=== PATIENT | male | born 1965 | race Caucasian/White ===

== ENCOUNTER 2021-03-13 12:03 | Inpatient (IN) | payer BC, OTHER ==
[~2021-03-13] VITALS: Ht 180 cm; Wt 89.1 kg
[2021-03-13] MEDS ORDERED: diphenhydrAMINE 25 MG TAB (BENADRYL) PO PRN (12:30)
[2021-03-13] MEDS ORDERED: MELATONIN 3 MG TABLET PO PRN (12:30)
[2021-03-13] MEDS ORDERED: HYDROcodone/APAP 5 MG/325 MG (LORTAB) TAB PO PRN (12:30)
[2021-03-13] MEDS ORDERED: ONDANSETRON 4 MG/2 ML (SDV) Z0FRAN IVP PRN (12:30)
[2021-03-13] MEDS ORDERED: CALCIUM CARBONATE 500 MG (TUMS) TAB.CHEW PO PRN (12:30)
[2021-03-13] MEDS ORDERED: DOCUSATE SODIUM 100 MG (COLACE) CAP PO PRN (12:30)
[2021-03-13] MEDS ORDERED: FUROSEMIDE 40 MG/4 ML INJ (LASIX) IVP ONE (12:30)
[2021-03-13] MEDS ORDERED: morphine INJ 10 MG/ML 1ML (SYR OR VIAL) IVP PRN (12:30)
[2021-03-13] MEDS ORDERED: ACETAMINOPHEN 500 MG TAB (TYLENOL) PO PRN (12:30)
[2021-03-13] MEDS ORDERED: ALPRAZolam 0.25 MG (XANAX) TAB PO PRN (12:30)
[2021-03-13] MEDS ORDERED: LOPERAMIDE 2 MG (IMODIUM) TABLET PO PRN (12:30)
[2021-03-13 14:08] LABS: ABG BASE EXCESS -0.4 MMOL/L (-2.5-2.5); ABG OXYGEN SATURATION 97 % (94-100); ABG PCO2 31 MMHG (35-45); ABG PH 7.47 (7.37-7.43); ABG PO2 72 MMHG (79-93); ALLENS TEST YES-POS; INSPIRED O2 5
[2021-03-13 14:09] LABS: PATIENT TEMP 36; VENTILATOR NO
[2021-03-13] MEDS ORDERED: POTA20TA15 PO (14:10)
[2021-03-13] MEDS ORDERED: AMOX1TAB12 PO (14:10)
[2021-03-13] MEDS ORDERED: IBUP-2473 PO (14:10)
[2021-03-13] MEDS ORDERED: IPRA3AMP31 NEB (14:10)
[2021-03-13] MEDS ORDERED: FURO80TA3 PO (14:10)
[2021-03-13] MEDS ORDERED: ALBU90AE INH (14:10)
--- NOTE | 2021-03-13 14:26 | Consultation-Cardiology ---
HPI-Cardiology Cardiology Consultation: Date of Consultation 03/13/21 Time Seen by a Provider: 14:00 Date of Admission 03-13-21 Attending Physician Lilliana Mendez DO Admitting Physician Denae,Local Physician Consulting Physician Camila Hearn MD, MA, FACP, FACC, [facility], CCDS Physician requesting consult: Dr Mendez HPI: Chief Complaint: Reason for Cardiology consultation: Progressive dyspnea CHF Apical thrombus Mr. Ball is a 55 yr old male admitted as a direct admit following CT of the chest today ordered by Yisel Vitale APRN at [facility]. He reports he has had increasing SOB, orthopnea and bilat LE swelling for the last 2 weeks following a bout with food poisoning, strep throat and then pneumonia for which he was t reated as an out pt. His sister is at the bedside. He reports SOB with just walking across a room along with tachycardia. He reports chest tightness which has been constant for the last couple weeks. No c/o syncope or near syncope. Reports fever and chills in the past, but none in the last week. He denies any recent nausea or vomiting. He has dyspnea with conversation. Review of Systems-Cardiology Review of Systems Constitutional: As described under HPI Eyes: No vision change Ears/Nose/Throat: No epistaxis, No recent hearing loss Respiratory: As described under HPI Cardiovascular: As described under HPI Gastrointestinal: As described under HPI Genitourinary: No dysuria, No hematuria Musculoskeletal: no symptoms reported Skin: No rash on exposed areas, No ulcerations on exposed areas Psychiatric/Neurological: No anxiety, No depression, No seizure, No focal weakness, No syncope Hematologic: No bleeding abnormalities [id number] Hx Patient Social History Have you traveled recently?: No Alcohol Use?: No Pt feels they are or have been: No Past Medical History PMH As described under Assessment. Family Medical History Family Medical History: He reports his mother had an ischemic stroke. He has a sister who has had a CVA. His father has HTN, HLD. Allergies and Home Medications Allergies Coded Allergies: Sulfa (Sulfonamide Antibiotics) (Verified Allergy, Unknown, 03/13/21) Home Medications Albuterol Sulfate 90 Mcg Aer.pow.ba, 2 PUFF INH Q4H PRN for SHORTNESS OF BREATH, (Reported) Last Action: Reviewed Amoxicillin/Potassium Clav 1 Each Tablet, 1 EA PO BID, (Reported) FILLED 02-28-2021 #20/10 DAY SUPPLY Last Action: Reviewed Furosemide 80 Mg Tablet, 80 MG PO DAILY, (Reported) Last Action: Reviewed Ibuprofen 200 Mg Tablet, 400 MG PO Q8H PRN for PAIN-MILD (1-4), (Reported) Last Action: Reviewed Ipratropium/Albuterol Sulfate 3 Ml Ampul.neb, 3 ML NEB Q6H, (Reported) Last Action: Reviewed Potassium Chloride 20 Meq Tab.er.prt, 40 MEQ PO BID, (Reported) TAKES 2 (20MEQ) TABS Last Action: Reviewed Patient Home Medication List Home Medication List Reviewed: Yes Physical Exam-Cardiology Physical Exam Vital Signs/I&O 03/13/21 03/13/21 03/13/21 03/13/21 13:24 13:45 14:00 14:39 Pulse 131 120 117 117 Resp 34 B/P (MAP) 124/97 (106) 132/103 (113) Pulse Ox 97 98 98 O2 Delivery Nasal Cannula Nasal Cannula O2 Flow Rate 5.00 5.00 Capillary Refill : Constitutional: AAO x 3, well-developed, well-nourished HEENT: PERRL, hearing is well preserved Neck: No carotid bruit; carotid pulses are 2 + bilaterally Respiratory: No respiratory distress; chest expansion is symmetric, chest is bilaterally symmetric, other (dyspneic with conversation; diminished breat hsounds) Cardiovascular: JVD, tachycardia, S1 and S2, systolic murmur Gastrointestinal: No tender; soft, round, audible bowel sounds Extremities: other (bilat LE pitting edema) Neurologic/Psychiatric: grossly intact (moves all extremities) Skin: No rash on exposed areas, No ulcerations on exposed areas Data Review Labs Laboratory Tests 03/13/21 13:54: Blood Gas Puncture Site LEFT WRIST, Blood Gas Patient Temperature 36, Arterial Blood pH 7.47H, Arterial Blood Partial Pressure CO2 31L, Arterial Blood Partial Pressure O2 72L, Arterial Blood HCO3 23, Arterial Blood Total CO2 24.0, Arterial Blood Oxygen Saturation 97, Arterial Blood Base Excess -0.4, Quincy Test YES-POS, Blood Gas Ventilator Setting NO, Blood Gas Inspired Oxygen 5 03/13/21 14:30: White Blood Count 18.2H, Red Blood Count 5.88H, Hemoglobin 16.0, Hematocrit 50, Mean Corpuscular Volume 85, Mean Corpuscular Hemoglobin 27, Mean Corpuscular Hemoglobin Concent 32, Red Cell Distribution Width 14.7H, Platelet Count 294, Mean Platelet Volume 12.0, Immature Granulocyte % (Auto) 1, Neutrophils (%) (Auto) 86H, Lymphocytes (%) (Auto) 8L, Monocytes (%) (Auto) 5, Eosinophils (%) (Auto) 0, Basophils (%) (Auto) 0, Neutrophils # (Auto) 15.6H, Lymphocytes # (Auto) 1.4, Monocytes # (Auto) 1.0, Eosinophils # (Auto) 0.0, Basophils # (Auto) 0.0, Immature Granulocyte # (Auto) 0.1, Neutrophils % (Manual) 75, Lymphocytes % (Manual) 14, Monocytes % (Manual) 9, Eosinophils % (Manual) 1, Band Neutrophils 1, Blood Morphology Comment NORMAL, Prothrombin Time 13.9, INR Comment 1.0, D- Dimer 1.33H, Sodium Level 136, Potassium Level 4.3, Chloride Level 101, Carbon Dioxide Level 25, Anion Gap 10, Blood Urea Nitrogen 24H, Creatinine 0.91, Estimat Glomerular Filtration Rate > 60, BUN/Creatinine Ratio 26, Glucose Level 300H, Lactic Acid Level 1.99, Calcium Level 8.3L, Corrected Calcium 8.7, Total Bilirubin 0.7, Aspartate Amino Transf (AST/SGOT) 47H, Alanine Aminotransferase (ALT/SGPT) 119H, Alkaline Phosphatase 101, Troponin I 5.744*H, B-Type Natriuretic Peptide 758.8H, Total Protein 6.6, Albumin 3.5, Procalcitonin 0.04 Radiology NAME: [facility] REC#: [id number] PT STATUS: REG CLI : 1965 PHYSICIAN: YISEL VITALE APRN ADMIT DATE: 03/13/21/CARD Draft Date of Exam:03/13/21 CT CHEST W EXAMINATION: CT chest with intravenous contrast. TECHNIQUE: Multiple contiguous axial images were obtained through the chest after the uneventful administration of intravenous contrast. All CT scans use one or more of the following dose optimizing techniques: automated exposure control, MA and/or KvP adjustment based on patient size and exam type or iterative reconstruction. HISTORY: Shortness of breath, lower extremity edema. COMPARISON: None available. FINDINGS: There are moderate pleural effusions with central consolidation and septal line thickening most consistent with edema. There is bibasilar atelectasis. No pneumothorax. No suspicious nodules. There is no axillary or supraclavicular lymphadenopathy. Mildly enlarged mediastinal lymph nodes likely reactive to the pulmonary edema. 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 There are mild coronary artery calcifications. No pericardial effusion. Aorta is normal in caliber. Limited views of the upper abdomen are unremarkable. There are no suspicious osseus lesions. IMPRESSION: 1. Moderate-sized pleural effusions with moderate severe pulmonary edema. 2. 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 Called and faxed to Zoila/Yisel Vitale APRN at 12:03 p.m. by cvb. Dictated on workstation # [id number] Dict: 03/13/21 1152 Trans: 03/13/21 1210 CVB [id number] Interpreted by: EBER MÉNDEZ MD Electronically signed by: A/P-Cardiology Assessment/Admission Diagnosis Progressive dyspnea Tachycardia CHF Ischemic cardiomyopathy - Echocardiogram of 03-13-[address] Stallworth showed LVEF 35-40%. Mod diffuse hypokinesis. Akinesis of the apical myocardium. Cannot exclude an apical thrombus. Echogenic density was noted at the apex after the use of Definity contrast measuring 2 x 2 cm, most prob representing a thrombus. Akinesis of the apical anterior, apical inferior, apical septal, apical lateral and apical myocardium. Mod MR. Mod to severe TR. PASP 55-60 mmHg. 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 Extensive resuscitative effort lasting more than 30 minutes by the hospitalist and the ER physician was unsuccessful PARADISE CHEEMA [employer]OCKSTITCH [employer]ING [employer]KER March 13, 2021 14:26 CAMILA HEARN MD FACP FAC CCDS March 13, 2021 16:11
[2021-03-13 14:39] VITALS: BP 132/103
[2021-03-13 14:41] LABS: BASOPHILS % (AUTO) 0 % (0-10); EOSINOPHILS % (AUTO) 0 % (0-10); HEMATOCRIT 50 % (40-54); LYMPHOCYTES # (AUTO) 1.4 X 10^3 (1.0-4.0); LYMPHOCYTES % (AUTO) 8 % (12-44); MEAN CORPUSCULAR HEMOGLOBIN 27 pg (25-34); MEAN CORPUSCULAR HGB CONC 32 g/dL (32-36); MEAN CORPUSCULAR VOLUME 85 fL (80-99); MONOCYTES % (AUTO) 5 % (0-12); NEUTROPHILS # (AUTO) 15.6 X 10^3 (1.8-7.8); NEUTROPHILS % (AUTO) 86 % (42-75); PLATELET COUNT 294 10^3/uL (130-400); WHITE BLOOD COUNT 18.2 10^3/uL (4.3-11.0)
[2021-03-13] MEDS ORDERED: meTOproloL SUCCINATE 50 MG (TOPROL XL) TAB PO SCH (14:45)
[2021-03-13 14:56] LABS: BAND NEUTROPHILS 1 %; EOSINOPHILS % (MANUAL) 1 %; LYMPHOCYTES % (MANUAL) 14 %; MONOCYTES % (MANUAL) 9 %; NEUTROPHILS % (MANUAL) 75 %; RBC MORPH NORMAL
[2021-03-13] MEDS ORDERED: RT-ALBUTEROL/IPRATROPIUM 3 ML (DUONEB) VIAL ONE (14:58)
[2021-03-13] MEDS ORDERED: RT-ALBUTEROL/IPRATROPIUM 3 ML (DUONEB) VIAL INH PRN (15:00)
[2021-03-13] MEDS ORDERED: ENOXAPARIN 300 MG/3 ML (LOVENOX) MULTI-DOSE VIAL SQ SCH (15:00)
[2021-03-13] MEDS ORDERED: lisINopril 5 MG (PRINIVIL) TABLET PO ONE (15:00)
[2021-03-13] MEDS ORDERED: RT-ALBUTEROL/IPRATROPIUM 3 ML (DUONEB) VIAL INH SCH (15:00)
[2021-03-13] MEDS ORDERED: meTOprolol SUCCINATE 100 MG (TOPROL XL) TAB PO ONE (15:00)
[2021-03-13 15:01] LABS: ALBUMIN 3.5 GM/DL (3.2-4.5); CHLORIDE 101 MMOL/L (98-107); POTASSIUM 4.3 MMOL/L (3.6-5.0); SODIUM 136 MMOL/L (135-145)
[2021-03-13 15:03] LABS: CALCIUM 8.3 MG/DL (8.5-10.1)
[2021-03-13 15:04] LABS: GLUCOSE 300 MG/DL (70-105); TOTAL PROTEIN 6.6 GM/DL (6.4-8.2)
[2021-03-13 15:05] LABS: CARBON DIOXIDE 25 MMOL/L (21-32)
[2021-03-13 15:06] LABS: BILIRUBIN,TOTAL 0.7 MG/DL (0.1-1.0)
[2021-03-13 15:07] LABS: ALKALINE PHOSPHATASE 101 U/L (40-136); CREATININE SERUM 0.91 MG/DL (0.60-1.30); FIBRIN DEGRADATION PRODUCTS 1.33 UG/ML (0.00-0.49); GFR ESTIMATED > 60; PROTHROMBIN TIME PATIENT 13.9 SEC (12.2-14.7)
[2021-03-13 15:08] LABS: BUN/CREATININE RATIO 26
[2021-03-13 15:10] LABS: ALANINE AMINOTRANSFERASE 119 U/L (0-55)
[2021-03-13] MEDS ORDERED: MAGNESIUM 1 GM/100 ML IVPB 100 ML IV ONE (15:10)
--- NOTE | 2021-03-13 15:29 | Diagnostic Imaging Report ---
INDICATION: Respiratory failure. EXAMINATION: Portable chest at 02:40 p.m. FINDINGS: There are bilateral pleural effusions. There are bilateral perihilar infiltrates. This could be acute pulmonary edema but an inflammatory etiology cannot be excluded. Heart size is normal. IMPRESSION: Bilateral perihilar infiltrates that are relatively dense and are probably inflammatory rather than pulmonary edema. Patient does have bilateral pleural effusions. Dictated by: Dictated on workstation # [id number]
--- NOTE | 2021-03-13 16:03 | Short Stay Summary-Hospitalist ---
History of Present Illness HPI/Chief Complaint Chief complaint: Shortness of breath History of present illness: This is a 55-year-old white male who had been seen in the [facility] several times the last 2 weeks placed on multiple antibiotic rounds along with diuretics and Covid tested x2 due to persistent and progressive shortness of breath. I admitted him directly from home after Soina Mccurdy called me to update me on the case and the need for a direct admission so I admitted him to cardiac stepdown due to echocardiogram showing apical thrombus and persistent infiltrates on CT scan and chest x-ray. Patient had not sought any medical care for 40 years and had no medical history and no medications on a regular basis. I initiated the work-up after he arrived at 1315 and he remained stable until 1505 when he began having shortness of breath then had severe respiratory arrest and ventricular fibrillation was noted on telemetry and SATINDER ROJAS was called of which Dr. Garner and Dr. Buckley attended until I arrived. Multiple rounds of epinephrine and amiodarone were given along with 9 total shocks without any change in the arrest status. The ABG and lab work-up along with chest x-ray were reviewed revealing elevated troponin of 5.7 so it is presumed with cardiology input that he likely had had some sort of myocardial infarction 2 weeks ago and suffered ventricular arrhythmia and sudden cardiac . Family at the bedside during the entire CODE BLUE process. Source: RN/, old records Exam Limitations: clinical condition Date Seen 03/13/21 Time Seen by a Provider: 15:30 Attending Physician Lilliana Thomas DO PCP No,Local Physician Referring Physician Date of Admission March 13, 2021 at 13:08 Home Medications & Allergies Home Medications Reviewed patient Home Medication Reconciliation performed by pharmacy medication reconciliations electrical equipment technician and/or nursing. Patients Allergies have been reviewed. Allergies Allergies Coded Allergies Sulfa (Sulfonamide Antibiotics) (Verified Allergy, Unknown, 03/13/21) Past [id number]-Psirof Hx Past Med/Social Hx: Reviewed Nursing Past Med/Soc Hx, Reviewed and Corrections made Patient Social History Marrital Status: Employed/Student: employed Alcohol Use: Denies Use Smoking Status: Never a Smoker Recent Foreign Travel: No Contact w/other who traveled: No Immunizations Up To Date Date of Influenza Vaccine: Aug 13, 2020 Review of Systems Constitutional: see HPI Respiratory: dyspnea on exertion, short of breath Physical Exam Physical Exam Vital Signs Vital Signs - First Documented 03/13/21 03/13/21 13:24 13:45 Pulse 131 Resp 34 B/P (MAP) 124/97 (106) Pulse Ox 97 O2 Delivery Nasal Cannula O2 Flow Rate 5.00 Capillary Refill : Height, Weight, BMI Height: '" Weight: lbs. oz. kg; 27.50 BMI Method: General Appearance: No Apparent Distress, WD/WN, Chronically ill, Obese, Other (Unresponsive) Respiratory: Decreased Breath Sounds, Wheezing, Other (Intubated) Cardiovascular: Other (Pulseless) Results Results/Procedures Labs Laboratory Tests 03/13/21 14:30 Patient resulted labs reviewed. Short Stay Diagnosis Discharge Diagnosis-Short Stay Admission Diagnosis Assessment: Sudden cardiac from ventricular fibrillation status post CODE BLUE with multiple rounds of epinephrine and amiodarone and shocks Elevated troponin presumed non-ST elevation SC approximately 2 weeks ago causing the fatal ventricular arrhythmia Volume overload Elevated white count Infiltrates on chest x-ray severe in nature Plan: management Final Discharge Diagnosis Assessment: Sudden cardiac from ventricular fibrillation status post CODE BLUE with m ultiple rounds of epinephrine and amiodarone and shocks Elevated troponin presumed non-ST elevation SC approximately 2 weeks ago causing the fatal ventricular arrhythmia Volume overload Elevated white count Infiltrates on chest x-ray severe in nature Plan: management Conclusion Plan Diagnosis/Problems Diagnosis/Problems (1) Sudden cardiac (2) Ventricular fibrillation (3) Elevated troponin (4) Non-ST elevation SC (NSTEMI) (5) Apical mural thrombus (6) Leukocytosis LILLIANA THOMAS DO March 13, 2021 16:03
--- NOTE | 2021-03-13 16:06 | Code Blue Response-Hospitalist ---
General Date Seen/Responded 03/13/21 Source: patient History of Present Illness Time seen by provider: 15:10 Initial Comments Patient admitted today for new onset heart failure and apical aneurysm on echo. Just prior to CODE BLUE being called her was up in bed and about to receive a breathing treatment when he went in to a v-fib arrest. High quality compressions were started immediately and back board was put in place. He was shocked with 120J as soon as defibrillator pads were attached. IO was placed as he only had 1 IV in his AC. He remained in v-fib through the code. He was given epi at appropriate intervals per ACLS guidelines. He was treated with lidocaine x2 doses, and increasing doses of amiodarone. He was given Mag sulfate as well, along with calcium, and bicarb x2. He unfortunately remained in v-fib throught the entire code. I consulted with Dr Hearn who recommended increasing to 200J for defibrillation which was done on all subsequent shocks. I updated family multiple times throughout code after 30 minutes of continued resuscitative efforts he remained in v-fib and bedside ultrasound was appllied by Dr Buckley and no cardiac motility was noted. Time of was called at 1540. Timing/Duration: just prior to arrival Allergies and Home Medications Allergies Coded Allergies: Sulfa (Sulfonamide Antibiotics) (Verified Allergy, Unknown, 03/13/21) Home Medications Albuterol Sulfate 90 Mcg Aer.pow.ba, 2 PUFF INH Q4H PRN for SHORTNESS OF BREATH, (Reported) Amoxicillin/Potassium Clav 1 Each Tablet, 1 EA PO BID, (Reported) FILLED 02-28-2021 #20/10 DAY SUPPLY Furosemide 80 Mg Tablet, 80 MG PO DAILY, (Reported) Ibuprofen 200 Mg Tablet, 400 MG PO Q8H PRN for PAIN-MILD (1-4), (Reported) Ipratropium/Albuterol Sulfate 3 Ml Ampul.neb, 3 ML NEB Q6H, (Reported) Potassium Chloride 20 Meq Tab.er.prt, 40 MEQ PO BID, (Reported) TAKES 2 (20MEQ) TABS Physical Exam Vital Signs Vital Signs - First Documented 03/13/21 03/13/21 03/13/21 03/13/21 13:24 13:30 13:40 13:45 Temp 37.0 Pulse 131 Resp 34 B/P (MAP) 124/97 (106) Pulse Ox 97 O2 Delivery Nasal Cannula O2 Flow Rate 5.00 Capillary Refill : Height, Weight, BMI Height: '" Weight: lbs. oz. kg; 27.50 BMI Method: General Appearance: severe distress Procedures/Interventions Additional Procedures: CPR Progress/Results/Core Measures Results/Orders Lab Results Laboratory Tests Test 03/13/21 13:54 03/13/21 14:30 Range/Units Blood Gas Puncture Site LEFT WRIST Blood Gas Patient Temperature 36 Arterial Blood pH 7.47 H 7.37-7.43 Arterial Blood Partial Pressure CO2 31 L 35-45 MMHG Arterial Blood Partial Pressure O2 72 L 79-93 MMHG Arterial Blood HCO3 23 23-27 MMOL/L Arterial Blood Total CO2 24.0 21.0-31.0 MMOL/L Arterial Blood Oxygen Saturation 97 94-100 % Arterial Blood Base Excess -0.4 -2.5-2.5 MMOL/L Quincy Test YES-POS Blood Gas Ventilator Setting NO Blood Gas Inspired Oxygen 5 White Blood Count 18.2 H 4.3-11.0 10^3/uL Red Blood Count 5.88 H 4.30-5.52 10^6/uL Hemoglobin 16.0 13.3-17.7 g/dL Hematocrit 50 40-54 % Mean Corpuscular Volume 85 80-99 fL Mean Corpuscular Hemoglobin 27 25-34 pg Mean Corpuscular Hemoglobin Concent 32 32-36 g/dL Red Cell Distribution Width 14.7 H 10.0-14.5 % Platelet Count 294 130-400 10^3/uL Mean Platelet Volume 12.0 9.0-12.2 fL Immature Granulocyte % (Auto) 1 % Neutrophils (%) (Auto) 86 H 42-75 % Lymphocytes (%) (Auto) 8 L 12-44 % Monocytes (%) (Auto) 5 0-12 % Eosinophils (%) (Auto) 0 0-10 % Basophils (%) (Auto) 0 0-10 % Neutrophils # (Auto) 15.6 H 1.8-7.8 X 10^3 Lymphocytes # (Auto) 1.4 1.0-4.0 X 10^3 Monocytes # (Auto) 1.0 0.0-1.0 X 10^3 Eosinophils # (Auto) 0.0 0.0-0.3 10^3/uL Basophils # (Auto) 0.0 0.0-0.1 10^3/uL Immature Granulocyte # (Auto) 0.1 0.0-0.1 10^3/uL Neutrophils % (Manual) 75 % Lymphocytes % (Manual) 14 % Monocytes % (Manual) 9 % Eosinophils % (Manual) 1 % Band Neutrophils 1 % Blood Morphology Comment NORMAL Prothrombin Time 13.9 12.2-14.7 SEC INR Comment 1.0 0.8-1.4 D-Dimer 1.33 H 0.00-0.49 UG/ML Sodium Level 136 135-145 MMOL/L Potassium Level 4.3 3.6-5.0 MMOL/L Chloride Level 101 98-107 MMOL/L Carbon Dioxide Level 25 21-32 MMOL/L Anion Gap 10 5-14 MMOL/L Blood Urea Nitrogen 24 H 7-18 MG/DL Creatinine 0.91 0.60-1.30 MG/DL Estimat Glomerular Filtration Rate > 60 BUN/Creatinine Ratio 26 Glucose Level 300 H 70-105 MG/DL Lactic Acid Level 1.99 0.50-2.00 MMOL/L Calcium Level 8.3 L 8.5-10.1 MG/DL Corrected Calcium 8.7 8.5-10.1 MG/DL Total Bilirubin 0.7 0.1-1.0 MG/DL Aspartate Amino Transf (AST/SGOT) 47 H 5-34 U/L Alanine Aminotransferase (ALT/SGPT) 119 H 0-55 U/L Alkaline Phosphatase 101 40-136 U/L Troponin I 5.744 *H <0.028 NG/ML B-Type Natriuretic Peptide 758.8 H <100.0 PG/ML Total Protein 6.6 6.4-8.2 GM/DL Albumin 3.5 3.2-4.5 GM/DL Procalcitonin 0.04 <0.10 NG/ML Medications Given in ED Vital Signs/I&O 03/13/21 03/13/21 03/13/21 03/13/21 13:24 13:30 13:40 13:45 Temp 37.0 Pulse 131 120 Resp 34 B/P (MAP) 124/97 (106) Pulse Ox 97 O2 Delivery Nasal Cannula Nasal Cannula O2 Flow Rate 5.00 5.00 03/13/21 03/13/21 14:00 14:39 Pulse 117 117 B/P (MAP) 132/103 (113) Pulse Ox 98 98 O2 Delivery Nasal Cannula O2 Flow Rate 5.00 Blood Pressure Mean: 113 JUSTIN BARRETO MD March 13, 2021 16:06
[2021-03-13] MEDS ORDERED: FUROSEMIDE 40 MG/4 ML INJ (LASIX) IVP SCH (17:00)
[2021-03-13] MEDS ORDERED: warFARin 5 MG (COUMADIN) TAB PO SCH (18:00)
[2021-03-13] MEDS ORDERED: MAGNESIUM SULF 5 GM/10 ML VIAL IV ONE (20:05)
[2021-03-13] MEDS ORDERED: SODIUM BICARB 8.4% 50 MEQ/50 ML (ABBOTT) SYR INJ ONE (20:05)
[2021-03-13] MEDS ORDERED: LIDOCAINE BOLUS 100 MG/5 ML (IMS) SYR INJ ONE (20:05)
[2021-03-13] MEDS ORDERED: EPINEPHrine 0.1 MG/ML 10 ML (HOSPIRA) SYR INJ ONE (20:05)
[2021-03-13] MEDS ORDERED: AMIODARONE (BOLUS) 150 MG/3 ML IV ONE (20:05)
[2021-03-13] MEDS ORDERED: CATHETER FLUSH 10 ML SYR IV ONE (20:05)
[2021-03-13] MEDS ORDERED: CALCIUM CHLORIDE 1 GM/10 ML (IMS) SYR INJ ONE (20:05)
[2021-03-13] MEDS ORDERED: fentaNYL INJ 100 MCG/2 ML AMP IV ONE (20:09)
[2021-03-13] MEDS ORDERED: MIDAZOLAM 5 MG/5 ML (VERSED) VIAL IV ONE (20:09)
[2021-03-13] MEDS ORDERED: SUCCINYLCHOLINE INJ 100 MG/5 ML SYR/VIAL INJ ONE (20:09)
[2021-03-13] MEDS ORDERED: SENNA W/DOCUSATE (SENOKOT S) TABLET PO SCH (21:00)
[2021-03-14] MEDS ORDERED: meTOprolol SUCCINATE 100 MG (TOPROL XL) TAB PO SCH (09:00)
[2021-03-14] MEDS ORDERED: meTOproloL SUCCINATE 50 MG (TOPROL XL) TAB PO SCH (09:00)
[2021-03-14] MEDS ORDERED: lisINopril 5 MG (PRINIVIL) TABLET PO SCH (09:00)
--- NOTE | 2021-03-16 05:07 | Physician Query Clarification ---
PQ-CHF Specificity Admission Date: March 13, 2021 at 13:08 Discharge Date: March 13, 2021 at 15:40 Dr. SHELLY THOMAS DO The medical record reflects the following clinical scenario: History/Risk Factors: 55 y/o male patient presents with shortness of breath, dyspnea, new onset CHF was documented in medical record. Cardiac consultation, 03/13: Progressive dyspnea, tachycardia, CHF and patient developed ventricular fibrillation cardiac arrest extensive CPR was done by hospitalist and ER physician unsuccessful , . Shortstay summary, 03/13: Sudden cardiac from ventricular fibrillation, NSTEMI, apical thrombosis. Clinical Findings:BNP-758.8 H, systolic murmur, pitting edema. Treatment: IV Lasix. Question: Can you further specify the acuity &/or type of CHF per the clinical indicators above? Please document a response in the Progress Notes or Discharge Summary. 1. Acuity: Acute, Chronic or Acute on Chronic 2. Type: Systolic, Diastolic or Systolic & Diastolic 3. Unspecified: CHF cannot be further specified regarding type or acuity 4. Other, with explanation of clinical findings 5. Clinically undetermined, no explanation for clinical findings PHYSICIAN RESPONSE Acuity: Clinically undetermined Type: Clinically undetermined Please remember a lack of response to the above will prompt a phone page by CDI/Coding staff. In responding to this query, please exercise your independent professional judgment. The purpose of this communication is to more accurately reflect the complexity of your patients condition. The fact that a question is asked does not imply that any particular answer is desired or expected. Thank you for your timely response to this clarification. Requestors name: [ ] Phone # [ ] THIS PHYSICIAN QUERY FORM IS A PERMANENT PART OF THE MEDICAL RECORD KRISTEL SANDS March 16, 2021 05:07 SHELLY THOMAS DO March 16, 2021 05:17
== END 2021-03-13 15:40 | disposition expired ==
LOC: ICU 13:08
PROVIDERS: ADMIT Internal Medicine; ATTEND Internal Medicine
PROC: 5A12012 Performance of Cardiac Output, Single, Manual (ICD-10-PCS; principal; 2021-03-13)
DX: I49.01 Ventricular fibrillation (principal); I22.2 Subsequent non-ST elevation (NSTEMI) myocardial infarction; I21.4 Non-ST elevation (NSTEMI) myocardial infarction; I25.5 Ischemic cardiomyopathy; I46.9 Cardiac arrest, cause unspecified; D72.829 Elevated white blood cell count, unspecified; I50.9 Heart failure, unspecified; E87.70 Fluid overload, unspecified; R06.03 Acute respiratory distress; I08.1 Rheumatic disorders of both mitral and tricuspid valves; I49.9 Cardiac arrhythmia, unspecified; Z88.2 Allergy status to sulfonamides; Z79.899 Other long term (current) drug therapy
CPT/HCPCS: 36415; 71045; 80053; 82805; 83605; 83880; 84145; 84484; 85007; 85027; 85379; 85610; 87040; 87081

== ENCOUNTER → 2021-03-13 | Outpatient (CLI) | payer BC ==
[~2021-03-13] MED LIST: ALBU90AE INH; AMOX1TAB12 PO; CATHETER FLUSH 10 ML SYR IV PRN; FURO80TA3 PO; HOLD METFORMIN - RECEIVED CONTRAST 20 ML VIAL IV SCH; IBUP-2473 PO; IOHEXOL 350 MG/ML 100 ML (OMNIPAQUE 350) VIAL IV ONE; IPRA3AMP31 NEB; NS 100 ML (IVPB) BAG IV ONE; POTA20TA15 PO
--- NOTE | 2021-03-13 12:11 | Diagnostic Imaging Report ---
EXAMINATION: CT chest with intravenous contrast. TECHNIQUE: Multiple contiguous axial images were obtained through the chest after the uneventful administration of intravenous contrast. All CT scans use one or more of the following dose optimizing techniques: automated exposure control, MA and/or KvP adjustment based on patient size and exam type or iterative reconstruction. HISTORY: Shortness of breath, lower extremity edema. COMPARISON: None available. FINDINGS: There are moderate pleural effusions with central consolidation and septal line thickening most consistent with edema. There is bibasilar atelectasis. No pneumothorax. No suspicious nodules. There is no axillary or supraclavicular lymphadenopathy. Mildly enlarged mediastinal lymph nodes likely reactive to the pulmonary edema. 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 There are mild coronary artery calcifications. No pericardial effusion. Aorta is normal in caliber. Limited views of the upper abdomen are unremarkable. There are no suspicious osseus lesions. IMPRESSION: 1. Moderate-sized pleural effusions with moderate severe pulmonary edema. 2. 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 Called and faxed to Zoila/Michael Vitale APRN at 12:03 p.m. by cvb. Dictated by: Dictated on workstation # [id number]
--- NOTE | 2021-03-13 15:47 | Anesthesia-Procedure Note ---
Procedures/Interventions Procedure Start/Stop/Diagnosis Date of Procedure: March 13, 2021 Start Time: 15:10 Stop Time: 15:45 Intubation RSI: Yes 100% pre-Ox, [id number]: No Intubation Method: orotracheal Videoscope used: Yes Grade View: 3 Medications: Succinylcholine Mask Ventilation: positive Positive End Tide CO2: Yes Breath Sounds after Intubation: bilateral-equal ETT Securred @ (cm): 23 Intubated with ease: No Intubation Complications: no complications IVIS ARMSTRONG CRNA March 13, 2021 15:47
== END ==
LOC: CARD 10:00
PROVIDERS: ATTEND Nurse Practitioner Family
DX: J90 Pleural effusion, not elsewhere classified (principal); I08.1 Rheumatic disorders of both mitral and tricuspid valves; I25.3 Aneurysm of heart; J81.1 Chronic pulmonary edema
CPT/HCPCS: 71260; 93306